=== PATIENT | female | born 1990 | race Caucasian/White ===

== ENCOUNTER 2019-03-12 01:11 | Observation (INO) ==
[2019-03-12] MEDS ORDERED: SOLU-MEDROL IV ONE (01:15)
[2019-03-12] MEDS ORDERED: ALBUTEROL NEB INH ONE (01:16)
--- NOTE | 2019-03-12 01:25 | PROVIDER DOCUMENTATION ---
HPI-Respiratory General - General Chief Complaint: Asthma Attack Stated Complaint: SEVERE ASTHMA ATTACK Time Seen by Provider: 03/12/19 01:14 Source: patient Allergies/Adverse Reactions: Patient Allergies Allergy/AdvReac Type Severity Reaction Status Date / Time No Known Allergies Allergy Verified 03/12/19 06:49 Home Medications: Home Medication List Medication Instructions Recorded Confirmed Last Taken Type Albuterol Sulfate [Proair Hfa] 8.5 gm INHALATION Q4-6H PRN PRN #1 09/04/18 03/12/19 Unknown Rx [email or web address] Albuterol [Albuterol Neb] 2.5 mg INH Q4H PRN PRN #30 neb 09/04/18 03/12/19 Unknown Rx - History of Present Illness-Resp Nature of Presenting Problem: 29 YO F pmh for asthma presents with wheezing, SOB and cough. States she is having an asthma attack. This started at 8pm, she has tried multiple breathing tx and took prednisone with no improvement. Last hospitalization for asthma was when she was a child. Quality of Pain: reports: none Onset/Duration: reports: 4-6 hours ago Timing: reports: still present, getting worse Context: denies: recent foreign travel, recent URI Exposure: reports: unknown cause Cough Quality/Degree: reports: mild Episode Frequency: occasional episodes Current Respiratory Medication Therapy: Initiated uses spacer, Initiated albuterol/atrovent inhale, Initiated prednisone Modifying Factors: worse with: albuterol inhaler, albuterol nebulizer Associated Symptoms: reports: cough Review of Systems - Adult - REVIEW OF SYSTEMS - ADULT Constitutional: denies: chills, fever Eyes: reports: no symptoms reported Ears, Nose, Mouth & Throat: reports: no symptoms reported Cardiovascular: reports: no symptoms reported Respiratory: reports: cough, shortness of breath, wheezing Gastrointestinal: reports: no symptoms reported Genitourinary: reports: no symptoms reported Musculoskeletal: reports: no symptoms reported Integumentary: reports: no symptoms reported Neurological: reports: no symptoms reported Endocrine: reports: no symptoms reported Past History - Adult - PAST MEDICAL HISTORY-ADULT Review of Records: reports: Social history reviewed & non-contributory. Major Childhood Illnesses: reports: denies history Cardiovascular: reports: denies history Respiratory: reports: asthma Gastrointestinal: reports: denies history Obstetrical/Gynecological: reports: denies history Genitourinary: reports: denies history Musculoskeletal: reports: denies history Neurological: reports: denies history Psychiatric: reports: denies history Endocrine/Immune: reports: denies history Other Conditions: reports: denies history - PRIOR SURGERIES/PROCEDURES Surgical/Procedure History: reports: none - IMMUNIZATION STATUS Childhood Immunizations: See Nurse Assessment Flu Vaccine: See Nurse Assessment - FAMILY HISTORY Family History: reviewed, not pertinent - SOCIAL HISTORY Smoking: denies, quit less than 1 year (quit 1 month ago) Substance Use: denies Alcohol Use Frequency: occasionally Living Situation: family Physical Exam-General - PHYSICAL EXAM-ADULT Initial Vital Signs Reviewed: Yes - CONSTITUTIONAL General Appearance: alert, moderate distress (respiratory) - EYES Eyes: PERRL/EOMI, pink conjunctivae - HEAD, EARS, NOSE, MOUTH & THROAT HENMT: moist mucous membranes - NECK Neck: supple - RESPIRATORY Respiratory: no accessory muscle use, respiratory distress, stridor, wheezing, prolonged expiration - CARDIOVASCULAR Cardiovascular: tachycardia - GASTROINTESTINAL (ABDOMEN) Abdominal Exam: non tender, soft - MUSCULOSKELETAL Extremity: normal range of motion, normal gait, normal inspection - SKIN Integumentary: normal color, normal turgor, warm/dry - NEUROLOGIC Neurologic: grossly normal - PSYCHIATRIC Psych/Mental Status: normal mood/affect, oriented x 3 Progress - PLAN OF CARE/RESULTS Progress/Plan/Lab Results: Laboratory Results - last 24 hr 03/12/19 03/12/19 01:30 01:30 WBC 12.96 H RBC 4.01 L Hgb 12.8 Hct 38.6 MCV 96.3 MCH 31.9 H MCHC 33.2 RDW Std Deviation 12.8 Plt Count 343 MPV 9.7 Immature Gran % (Auto) 0.2 Neut % (Auto) 91.4 H Lymph % (Auto) 5.9 L Carter % (Auto) 2.2 Eos % (Auto) 0.1 Baso % (Auto) 0.2 Immature Gran # (Auto) 0.03 Neut # (Auto) 11.85 H Lymph # (Auto) 0.76 L Carter # (Auto) 0.28 Eos # (Auto) 0.01 Baso # (Auto) 0.03 Sodium 138 Potassium 4.1 Chloride 103 Carbon Dioxide 19 L Anion Gap 16 BUN 12 Creatinine 1.0 H Estimated GFR/1.73 m2 > 60 BUN/Creatinine Ratio 12 Glucose 131 H Calculated Osmolality 277 Calcium 8.9 Total Bilirubin 0.16 L AST 18 ALT 19 Alkaline Phosphatase 57 Total Protein 7.3 Albumin 4.5 Globulin 2.8 Albumin/Globulin Ratio 1.6 Orders Category Date Time Status Admit - [facility] Routine AdmDCTranf 03/12/19 04:31 Active Activity - Up with Assistance ORDERED Care 03/12/19 04:31 Active Intake and Output-Strict ORDERED Care 03/12/19 04:31 Active Nursing- Assist w/ IS as order ORDERED Care 03/12/19 04:31 Active Saline Loc DIRECTED Care 03/12/19 04:31 Completed Turn, Cough and Deep Breathe Q4HR.AWAKE Care 03/12/19 04:31 Active Vital Signs Order Q 4-HR ASSESS Care 03/12/19 04:31 Active Regular Diet Diet 03/12/19 04:31 Completed cxr [CHEST-2 VIEWS] [RAD] Stat Exams 03/12/19 01:19 Completed CBC WITH DIFF [HEME] Stat Lab 03/12/19 01:30 Completed COMPREHENSIVE METABOLIC PANEL [CHEM] Stat Lab 03/12/19 01:30 Completed Acetaminophen [Tylenol] Med 03/12/19 04:31 Discontinued 650 mg PO Q4-6H PRN PRN Albuterol 2.5MG/Ipratrop 0.5MG [Duoneb (A & A)] Med 03/12/19 02:19 Discontinued 3 ml INH NOW ONE Albuterol 2.5MG/Ipratrop 0.5MG [Duoneb (A & A)] Med 03/12/19 04:31 Discontinued 3 ml INH Q6H Albuterol 2.5MG/Ipratrop 0.5MG [Duoneb (A & A)] Med 03/12/19 10:00 Discontinued 3 ml INH RTQ6H Albuterol [Albuterol Neb] Med 03/12/19 01:16 Discontinued 7.5 mg INH NOW ONE Arformoterol Neb [Brovana Neb] Med 03/12/19 09:00 Discontinued 15 microgm INH RTBID Azithromycin [Zithromax] Med 03/12/19 02:44 Discontinued 500 mg PO NOW ONE Budesonide [Pulmicort] Med 03/12/19 02:19 Discontinued 0.5 mg INH NOW ONE Enoxaparin [Lovenox] Med 03/12/19 06:00 Discontinued 40 mg SUBQ Q24H Epinephrine Med 03/12/19 02:23 Discontinued 0.3 mg SUBQ NOW ONE Fluticasone 50 Mcg Nasal [place] [Flonase] Med 03/12/19 21:00 Discontinued 2 spray MASHA QHS Loratadine/Pse E.r. 12 Hr [Claritin-D 12 Hr] Med 03/12/19 09:00 Discontinued 1 each PO BID Methylprednisolone Sod Succ [Solu-Medrol] Med 03/12/19 01:15 Discontinued 125 mg IV NOW ONE Methylprednisolone Sod Succ [Solu-Medrol] Med 03/12/19 04:31 Discontinued 80 mg IV Q8H Ondansetron [Zofran] Med 03/12/19 04:31 Discontinued 4 mg IV Q4H PRN PRN Aerosol Treatments Routine Ot 03/12/19 01:16 Completed Aerosol Treatments Routine [facility] 03/12/19 02:19 Completed Aerosol Treatments Routine [facility] 03/12/19 04:31 Completed Aerosol Treatments Stat [facility] 03/12/19 01:16 Completed Aerosol Treatments Stat [facility] 03/12/19 02:19 Completed Aerosol Treatments Stat [facility] 03/12/19 04:31 Completed Incentive Spirometer Q4HR.AWAKE [facility] 03/12/19 05:00 Completed Incentive Spirometer Q4HR.AWAKE [facility] 03/12/19 09:00 Completed Incentive Spirometer Q4HR.AWAKE [facility] 03/12/19 13:00 Completed Incentive Spirometer Q4HR.AWAKE [facility] 03/12/19 17:00 Completed Incentive Spirometer Q4HR.AWAKE [facility] 03/12/19 21:00 Completed Incentive Spirometer Q4HR.AWAKE [facility] 03/13/19 01:00 Completed O2 Per Protocol Stat [facility] 03/12/19 01:15 Completed Oxygen Device Routine [facility] 03/12/19 04:31 Completed Peak Flow BID Oth 03/12/19 09:00 Completed Peak Flow BID [facility] 03/12/19 21:00 Completed Transfer/Admit Order [TRANSFER] Routine Transfer 03/12/19 03:41 Completed Result Diagrams: 03/12/19 01:30 03/12/19 01:30 - REASSESSMENT Reassessment #1 Time Reassessed: 02:20 Status: improving (pt states breathing improved, but still with short sentences. frequent visits for asthma exacerbation. will order duoneb and pulmicort, then reevaluate.) Reassessment #2 Time Reassessed: 02:41 Status: improving (now with mild inspiratory and expiratory wheezing, thinks she had fever yesterday. CXR unremarkable, NAC.) - XRAY 1 XRAY Study: Chest Impression: See EMR Report (normal heart size, no infiltrates or pleural effusions. compared to 02/27/18.) Comparison with other Films: no changes - CONSULTS/PCP/HOSPITALIST Notification #1 *Consult/PCP/Hospitalist*: dr WITT Time Discussed: 03:44 Consult Disposition: Admit - CHANGE OF SHIFT REPORT (ED Provider) 1 Report Given and Care Transferred to:: Dr. Lyle Time of Transfer: 02:30 Items Pending: Other (reevaluation) Departure - Departure Date of Disposition Decision: 03/12/19 Time of Disposition Decision: 03:45 DIAGNOSIS: Asthma exacerbation Qualifiers: Asthma severity: moderate Asthma persistence: persistent Qualified Code(s): J45.41 - Moderate persistent asthma with (acute) exacerbation Disposition: ADMITTED INPATIENT 09 Certified Medical Emergency: Emergent Condition: Fair - Critical Care Note This patient required my direct & personal management of CC.: No Attestation - Physician/ FADUMO Attestation Patient care was provided by Advanced Practice Provider:: Yes Advanced Practice Provider documentation review:: The Mid-level provider documentation, treatment plan and medical decision making was reviewed by the physician who agrees with all treatment and medical decision making by the [facility]. The physician spent face to face time with patient:: Yes Advanced Practice Provider documentation review:: Supervising physician onsite and consulted in the evaluation and care of this patient. The physician did have a face to face encounter with the patient.
[2019-03-12] MEDS ORDERED: PULMICORT INH ONE (02:19)
[2019-03-12] MEDS ORDERED: DUONEB (A & A) INH ONE ×2 (02:19→06:44)
[2019-03-12] MEDS ORDERED: EPINEPHRINE SUBQ ONE (02:23)
[2019-03-12] MEDS ORDERED: ZITHROMAX PO ONE (02:44)
[2019-03-12 04:19] LABS: AGAP 16; ALB/GLOB RATIO 1.6; ALBUMIN 4.5 g/dL (3.5-5.0); ALKALINE PHOSPHATASE 57 U/L (32-104); BUN 12 mg/dL (8-22); CALCIUM 8.9 mg/dL (8.8-10.2); CHLORIDE 103 mmol/L (98-107); COSMO 277; ESTIMATED GFR > 60; GLUCOSE 131 mg/dL (70-104); GOT 18 U/L (10-30); GPT 19 U/L (10-36); POTASSIUM 4.1 mmol/L (3.5-5.1); SODIUM 138 mmol/L (136-145); TCO2 19 mmol/L (25-35); TOTAL BILIRUBIN 0.16 mg/dL (0.20-1.00); TOTAL PROTEIN 7.3 g/dL (6.3-8.3)
[2019-03-12] MEDS ORDERED: DUONEB (A & A) INH SCH ×2 (04:31→10:00)
[2019-03-12] MEDS ORDERED: ZOFRAN IV PRN (04:31)
[2019-03-12] MEDS ORDERED: TYLENOL PO PRN (04:31)
[2019-03-12] MEDS: SOLU-MEDROL IV SCH ×2 (04:37→12:05)
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
[2019-03-12 04:49] LABS: BASO# 0.03 X1000 (0.0-0.2); BASO% 0.2 % (0.0-0.8); EOS# 0.01 X1000 (0.0-0.7); EOS% 0.1 % (0.0-10.0); HEMATOCRIT 38.6 % (37.0-47.0); HEMOGLOBIN 12.8 g/dL (12.0-16.0); IMM GRAN# 0.03 X1000 (0.0-0.04); IMM GRAN% 0.2 % (0.0-0.5); LYMPH# 0.76 X1000 (1.2-3.4); LYMPH% 5.9 % (20.5-51.1); MCH 31.9 PG (27-31); MCHC 33.2 g/dL (33-37); MCV 96.3 FL (81-99); MONO# 0.28 X1000 (0.11-0.59); MONO% 2.2 % (1.7-9.3); MPV 9.7 FL (7.4-10.4); NEUT# 11.85 X1000 (1.4-6.5); NEUT% 91.4 % (42.2-75.2); PLT 343 X1000 (130-400); RBC 4.01 XMIL (4.2-5.4); RDW 12.8 % (11.5-14.5); WBC 12.96 X1000 (4.8-10.8)
--- NOTE | 2019-03-12 05:48 | Diag Imaging Result Doc PS360 ---
EXAM: CHEST-2 VIEWS HISTORY: SOB TECHNIQUE: Two views COMPARISON: 10/23/2018 FINDINGS: The lungs are well expanded. The heart is not enlarged. The vessels are not distended. There are no infiltrates. No pleural effusions. IMPRESSION: No acute abnormality. Electronically signed by Hector Hall 03/12/2019 5:45 AM
[2019-03-12] MEDS ORDERED: LOVENOX SUBQ SCH (06:00)
[2019-03-12 07:39] VITALS: BP 127/62
[2019-03-12] MEDS ORDERED: BROVANA NEB ONE (08:44)
[2019-03-12] MEDS ORDERED: BROVANA NEB INH SCH (09:00)
[2019-03-12] MEDS ORDERED: CLARITIN-D 12 HR PO SCH (09:00)
[2019-03-12] MEDS ORDERED: FLONASE NAS SCH (21:00)
--- NOTE | 2019-03-13 05:55 | DISCHARGE SUMMARY ---
ADMISSION DATE: 03/12/2019 DISCHARGE DATE: 03/12/2019 DISCHARGE DIAGNOSES: 1. Acute asthma exacerbation. 2. Allergic rhinitis. PROCEDURES PERFORMED: Chest x-ray dated 03/12/2019. Impression: No acute abnormality. LABORATORY: WBC 12.9, hemoglobin 12.8, hematocrit 38.6, and platelets 343,000. Sodium 138, potassium 4.1, chloride 103, bicarbonate 19, BUN 12, creatinine 1, glucose 131, calcium 8.9, AST 18, ALT 19, alkaline phosphatase 57, and glucose 131. PHYSICAL EXAMINATION: Per the admitting physician, chest with decreased air entry bilaterally with scattered rhonchi. Cardiovascular without any problems. HOSPITAL COURSE: A 29-year-old female with a past medical history of allergic rhinitis and asthma. Apparently, at 8:00 in the evening yesterday while she was watching TV, she developed ocular nasal pruritus. A few hours later she developed sudden wheezing and intractable dry cough. She tried with some rescue inhalers several times before any relief, and decided to come to the hospital. She was given DuoNeb, Zithromax, Pulmicort, even epinephrine, and methyl prednisolone, but she was still tachycardic and short of breath. She denied any fever, chills, lower extremity redness, or pain. No palpitations or chest pain. No contact with strong smells or smoking. The patient was admitted. She was placed on breathing treatment. When I approached to the room, she was no longer hospitalized. This patient decided to leave AMA, and she was not evaluated by this practitioner. This patient left [place]. cc: Alexander Rashid MD
== END 2019-03-12 14:16 | disposition left against medical advice (07) ==
LOC: ED 01:11 → 3N 01:11 → SUATTDRO 06:00
PROVIDERS: ATTEND Internal Medicine